=== PATIENT | male | born 1955 | race Caucasian/White ===

== ENCOUNTER → 2019-07-02 | Outpatient (CLI) | payer OTHER ==
[2019-07-02 11:55] LABS: Creatinine, Urine Random 64.3 mg/dL (27.00-270.00)
[2019-07-02 11:57] LABS: Microalb/Creat Ratio UR, Rand 407.465 mg/g (0.000-30.000)
== END | disposition home or self-care (01) ==
LOC: LAB UVN 10:40 → EDSTATUS 15:46
DX: N39.0 Urinary tract infection, site not specified (principal)
CPT/HCPCS: 82043; 82570